=== PATIENT | female | born 1980 | race Caucasian/White ===

== ENCOUNTER → 2018-01-10 16:25 | Outpatient (CLI) | payer OTHER, SELFPAY ==
[2018-01-10 18:18] LABS: Rubella IgG > 500.0 IU/mL
[2018-01-13 10:43] LABS: Rubeola IgG Ab > 300.0 AU/mL (Immune >29.9); V-Zoster IgG (Immunity) 1480 index (Immune >165)
== END ==
PROVIDERS: Family Provider Family Medicine; PCP Family Medicine; Visit Provider Family Medicine
DX: Z01.84 Encounter for antibody response examination (principal)
CPT/HCPCS: 36415; 86735; 86762; 86765; 86787

== ENCOUNTER → 2019-01-11 06:34 | Outpatient (CLI) | payer OTHER, SELFPAY ==
[2018-06-23 09:08] VITALS: BMI 26.2
[2019-01-11 08:17] LABS: Iron 89 ug/dL (50-170); Thyroid Stim Hormone (TSH) 1.89 uIU/mL (0.358-3.74)
[2019-01-11 09:11] LABS: Vitamin B12 311 pg/mL (211-911); Vitamin D,25 Hydroxy 28.1 ng/mL (29.95-100.01)
== END ==
PROVIDERS: Family Provider Family Medicine; PCP Family Medicine; Referring Provider Family Medicine; Visit Provider Family Medicine
DX: Z00.00 Encounter for general adult medical examination without abnormal findings (principal)
CPT/HCPCS: 36415; 82306; 82533; 82607; 83540; 84443

== ENCOUNTER → 2019-02-10 07:29 | Outpatient (CLI) | payer OTHER, SELFPAY ==
[2018-06-23 09:08] VITALS: BMI 26.2
== END ==
PROVIDERS: Family Provider Family Medicine; PCP Family Medicine; Referring Provider Family Medicine; Visit Provider Family Medicine
DX: R53.83 Other fatigue (principal)
CPT/HCPCS: 36415; 82533

== ENCOUNTER → 2019-03-21 11:25 | Outpatient (CLI) | payer OTHER, SELFPAY ==
[2019-03-21 08:51] VITALS: BMI 26.2
[2019-03-24 11:57] LABS: HPV APTIMA, High Risk Negative (Negative)
== END ==
PROVIDERS: Family Provider Family Medicine; PCP Family Medicine; Referring Provider Nurse Practitioner Women's Health; Visit Provider Nurse Practitioner Women's Health
DX: Z12.4 Encounter for screening for malignant neoplasm of cervix (principal)
CPT/HCPCS: 87624; 88175; G0145

== ENCOUNTER → 2019-03-27 07:36 | Outpatient (CLI) | payer OTHER, SELFPAY ==
[2019-03-21 08:51] VITALS: BMI 26.2
--- NOTE | 2019-03-27 07:39 | US_ITS ---
STUDY: ULTRASOUND OF THE FEMALE PELVIS - COMPLETE REASON FOR EXAM: Female, 38 years old. Heavy menses. LMP: March 03, 2019. TECHNIQUE: Transabdominal and Transvaginal TECHNICAL QUALITY: Adequate. COMPARISON: None. FINDINGS: The uterus is retroflexed and is in a midline position. The uterus is enlarged and measures 10.9 cm x 7.4 cm x 5.8 cm. There is a Nabothian cyst of the cervix. The endometrium is thickened and measures 12.5 mm in thickness, and is hyperechoic. There is no demonstrated endometrial mass. There is no demonstrated myometrial mass. I.U.D. - The patient does not have an I.U.D. The right ovary is visualized. The right ovary measures 3.4 cm x 2 cm x 1.9 cm. There is a 1.7 cm x 1.7 cm x 0.9 cm hypoechoic nodule in the right ovary. There is no visualized right adnexal mass or complex lesion. There is normal arterial and normal venous vascularity. The left ovary is visualized. The left ovary measures 2.4 cm x 1.8 cm x 1.7 cm. There is no left ovarian cyst or ovarian mass. There is no visualized left adnexal mass or complex lesion. There is normal arterial and normal venous vascularity. There is no fluid in the cul-de-sac. The pre void volume of the bladder was 35 ml. Polycystic ovary disease: No. US/Pelvic (Non ) IMPRESSION: Slightly enlarged uterus with thickened endometrium. 1.7 cm x 1.7 cm x 0.9 cm hypoechoic nodule in the right ovary. Follow-up is recommended. Electronically Signed: Gagan Tong, at 13:06 EDT , Service support ,
--- NOTE | 2019-03-27 07:39 | US_ITS ---
STUDY: ULTRASOUND OF THE FEMALE PELVIS - COMPLETE REASON FOR EXAM: Female, 38 years old. Heavy menses. LMP: March 03, 2019. TECHNIQUE: Transabdominal and Transvaginal TECHNICAL QUALITY: Adequate. COMPARISON: None. FINDINGS: The uterus is retroflexed and is in a midline position. The uterus is enlarged and measures 10.9 cm x 7.4 cm x 5.8 cm. There is a Nabothian cyst of the cervix. The endometrium is thickened and measures 12.5 mm in thickness, and is hyperechoic. There is no demonstrated endometrial mass. There is no demonstrated myometrial mass. I.U.D. - The patient does not have an I.U.D. The right ovary is visualized. The right ovary measures 3.4 cm x 2 cm x 1.9 cm. There is a 1.7 cm x 1.7 cm x 0.9 cm hypoechoic nodule in the right ovary. There is no visualized right adnexal mass or complex lesion. There is normal arterial and normal venous vascularity. The left ovary is visualized. The left ovary measures 2.4 cm x 1.8 cm x 1.7 cm. There is no left ovarian cyst or ovarian mass. There is no visualized left adnexal mass or complex lesion. There is normal arterial and normal venous vascularity. There is no fluid in the cul-de-sac. The pre void volume of the bladder was 35 ml. Polycystic ovary disease: No. US/Transvaginal Non- IMPRESSION: Slightly enlarged uterus with thickened endometrium. 1.7 cm x 1.7 cm x 0.9 cm hypoechoic nodule in the right ovary. Follow-up is recommended. Electronically Signed: Gagan Tong, at 13:06 EDT , Service support ,
== END ==
PROVIDERS: Family Provider Family Medicine; PCP Family Medicine; Referring Provider Nurse Practitioner Women's Health; Visit Provider Nurse Practitioner Women's Health
DX: N92.0 Excessive and frequent menstruation with regular cycle (principal)
CPT/HCPCS: 76830; 76856

== ENCOUNTER → 2019-05-17 12:05 | Outpatient (CLI) | payer OTHER, SELFPAY ==
[2019-04-12 11:35] VITALS: BMI 29.0
[2019-05-17 14:28] LABS: Vitamin B12 613 pg/mL (211-911); Vitamin D,25 Hydroxy 46.6 ng/mL (29.95-100.01)
== END ==
PROVIDERS: Family Provider Family Medicine; PCP Family Medicine; Visit Provider Family Medicine
DX: E55.9 Vitamin D deficiency, unspecified (principal); E53.8 Deficiency of other specified B group vitamins
CPT/HCPCS: 36415; 82306; 82607

== ENCOUNTER 2019-05-27 16:04 | Observation (INO) | payer OTHER, SELFPAY ==
[2019-05-24 08:36] VITALS: BMI 29.0
[2019-05-27] VITALS (10 sets, daily range): BP systolic 124–150; BP diastolic 75–115; PULSE 109–147; RESP 16–28; TEMP 36.5–36.7; O2SAT 96–100; BMI 23.2; BMI 30.2
[2019-05-27] MEDS: Albuterol 2.5 MG/3 ML VIAL.NEB. INHALATION ×3 (16:18→17:12)
--- NOTE | 2019-05-27 16:20 | RAD_ITS ---
STUDY: X-RAY CHEST REASON FOR EXAM: Female, 38 years old. Shortness of breath, asthma TECHNIQUE: AP COMPARISON: None. FINDINGS: EKG leads project over the chest. The lungs are clear and expanded. There is no demonstrated pleural abnormality. Normal size heart. Normal mediastinum and criss. Normal visualized pulmonary arteries. Normal visualized aortic arch and descending thoracic aorta. Normal visualized thoracic spine. Normal visualized ribs, clavicles, and shoulders. There is no demonstrated abnormality of the visualized soft tissue structures of the upper abdomen. RAD/Chest 1 View (Portable) IMPRESSION: Nonacute portable x-ray examination of the chest. Electronically Signed: Rober Reyes MD (Brooks) at 16:49 EST , Service support ,
--- NOTE | 2019-05-27 16:20 | CPS ---
ACID POLYMERIZATION OPERATOR called to pts. room. Pt. was tachypneic and wheezes noted throughout. gave a verbal order for Aerosol tx to be given. Pt. has possible allergy to Atrovent medication, so albuterol tx was given. Tx given @ 16:18 physician aware.
[2019-05-27] MEDS: 0.9% Normal Saline 1,000 ML 1000 ML IV (16:26)
[2019-05-27] MEDS: MethylPREDNISolone 125 MG/2 ML Vial IV (16:26)
--- NOTE | 2019-05-27 16:28 | ED.DCSUM_ITS ---
- ER Visit Summary Date of Service: 05/27/19 Chief Complaint: Shortness of breath History of Present Illness: The patient is a 38 F presenting with shortness of breath. Patient states this started this morning. She ran a trail run approximately 2.5 miles. She then began having shortness of breath. She has a history of asthma. She tried her albuterol at home with no relief. She is not a smoker. Denies other complaints. Physical Examination: Vitals are stable. Heart rate 147, respiratory rate 26. Patient is afebrile. Alert no acute distress. HEENT exam is unremarkable. Neck is supple. Lungs are wheezing bilaterally. Tachypnea Heart is regular tachycardic Abdomen is soft nontender nondistended. Extremities are unremarkable. Skin is warm and dry. Remainder of exam is unremarkable. Emergency Department Course and Treatment: Patient was given albuterol aerosols. She was given Solu-Medrol IV. Chest x-ray shows no acute process. CBC unremarkable. Patient continues to have wheezing. She worsened after walking to the bathroom in the ED. She was given magnesium IV. Discussed with the hospitalist for admission. Disposition: Observation Impression: Asthma exacerbation This note was generated with [employer] dictation software. It may contain incorrect words, spelling, and punctuation that were not noted in review of the chart prior to signing ED Disposition - Plan for ED Patient:
--- NOTE | 2019-05-27 17:18 | EKG12_ITS ---
Test Reason : SOB Blood Pressure : / mmHG Vent. Rate : 133 BPM Atrial Rate : 133 BPM P-R Int : 114 ms QRS Dur : 086 ms QT Int : 312 ms P-R-T Axes : 042 050 030 degrees QTc Int : 464 ms Sinus tachycardia Nonspecific ST abnormality Abnormal ECG Confirmed by LON HAY, MAYA ([id number]), news videotape editor FRANCISCO ZAPIEN ([id number]) on 05/30/2019 1:54:23 PM Referred By: MARY Confirmed By:MAYA FORREST MD
[2019-05-27 17:23] LABS: Absolute Lymphocyte Count 2.43 X10^3/uL (0.83-4.51); Absolute Neutrophil Count 7.2 X10^3/uL (2.0-7.7); Basophil# 0.05 X10^3/uL; Basophil% 0.5 % (0-1); Eosinophil# 0.26 X10^3/uL; Eosinophils% 2.4 % (0-5); Hematocrit 36.1 % (37-47); Lymphocyte # 2.43 X10^3/ul (4.0); Lymphocyte % 22.8 % (19-41); Mean Corp Hgb Conc 33.2 g/dL (32-36); Mean Corpuscular Hgb 29.1 pg (27.0-32.0); Mean Corpuscular Volume 87.4 fL (81-99); Mean Platelet Vol. 8.9 fl (6.2-12.0); Monocyte# 0.66 X10^3/uL; Monocyte% 6.2 % (0-10); NRBC Flagged by Analyzer 0 % (0-5); Neutrophil # 7.23 X10^3/uL (2.7-7.7); Neutrophil % 67.8 % (47-70); Platelet Count 326 K/mm3 (150-450); RBC Distribution Width CV 13.1 % (11.6-14.6); RBC Distribution Width SD 41.8 fl (35.1-43.9); Red Blood Count 4.13 M/mm3 (4.2-5.4); White Blood Count 10.7 K/mm3 (4.4-11.0)
--- NOTE | 2019-05-27 17:26 | PCM.HP.STD ---
Problem List (1) Acute asthma exacerbation Status: Acute Qualifiers: Asthma severity: unspecified severity (2) Hypokalemia Status: Acute (3) Acute respiratory distress Status: Acute (4) Depression Status: Chronic Qualifiers: Depression Type: unspecified Qualified Code(s): F32.9 - Major depressive disorder, single episode, unspecified (5) Asthma Status: Chronic Qualifiers: Asthma severity: unspecified severity Asthma persistence: unspecified Asthma complication type: unspecified Qualified Code(s): J45.909 - Unspecified asthma, uncomplicated History of Present Illness Date of Admission: 05/27/19 Chief Complaint: Dyspnea, Wheezing The patient is a 38 y/o F w/ PMHx: Asthma, Depression who presents to the [facility] ED on 05/27/19 with history of feeling well with no recent URI symptoms, ran a off course [employer] race which included notable elevation at approximately 9 in the morning on day of presentation with temperature at that time 20 degrees with following severe wheezing, dyspnea which she notes did not improve despite oral magnesium and aerosol administration at home with notable tachycardia, tachypnea, ongoing wheezing and onset of nonproductive cough, worse with any increased respiratory attempt. In the emergency room with interventions patient did transiently improve but following ambulation to the restroom worsened again. Work-up in the ED included T 97.7, heart rate initially 147, BP 150/115, respiratory rate 26, 100% on room air, CBC with WC 10.7, hemoglobin 12, platelets 326 without shift, pending BMP and serum testing upon requested evaluation of patient ED physician, chest x-ray with no acute cardiopulmonary findings. In the ED patient ministered normal saline, Solu-Medrol 125 Milgram IV x1, DuoNeb and albuterol therapies as well as magnesium 2 g IV x1. Past Medical History Past Medical History (Chronic Problems): Chronic Problems (Last Reviewed 05/24/19 @ 08:36 by Isabel Moralez) Depression (Chronic) Asthma (Chronic) Medical History: Medical History (Last Reviewed 05/24/19 @ 08:36 by Isabel Moralez) Asthma J45.909 Depression F32.9 Shortness of breath R06.02 Vitamin D deficiency E55.9 Allergies peanut Allergy (Mild, Verified 05/27/19 16:08) Anaphylaxis treenut Allergy (Mild, Uncoded 05/27/19 16:08) Anaphylaxis Home Medications: Ambulatory Orders Medication Instructions Recorded Albuterol IH (ProAir) [Proair Hfa] 2 puff INHALATION Q2H PRN 09/15/13 epinephrine 0.3 mg/0.3 mL 0.3 mg IM ONCE 06/23/18 injection, auto-injector bupropion HCl XL 150 mg 24 hr 150 mg PO QAM 03/21/19 tablet, extended release cholecalciferol (vitamin D3) 2,000 2,000 unit PO DAILY 03/21/19 unit capsule fluticasone 100 mcg-salmeterol 50 1 puff INHALATION BID 03/21/19 mcg/dose blistr powdr for inhalation mecobalamin (vitamin B12) 1,000 1,000 mcg SUBLINGUAL DAILY 03/21/19 mcg disintegrating tablet,sublingual levonorgestrel 19.5 mcg/24 hrs (5 1 device INTRAUTERINE ONCE 05/24/19 yrs) 52 mg intrauterine device Surgical History: Surgical History (Last Reviewed 05/24/19 @ 08:36 by Isabel Moralez) History of tonsillectomy Z90.89 History of tubal ligation Z98.51 Surgical History: - - Tonsillectomy, bilateral tubal ligation. Psychiatric History: Depression ACADEMIC SERVICES COORDINATOR History: No pertinent ACADEMIC SERVICES COORDINATOR history Lives: Spouse/ Significant Other Smoking Status: Never smoker Tobacco Use: Non-smoker Alcohol: Occasional Drugs: None - *Family History Maternal Family History: Family History (Last Reviewed 05/24/19 @ 08:36 by Isabel Moralez) Father Colon cancer Diabetes Hypertension History of liver cancer History Items: - - Mother with a history of heart disease including SVT, MVP as well as asthma. Paternal Family History: Family History (Last Reviewed 05/24/19 @ 08:36 by Isabel Moralez) Father Colon cancer Diabetes Hypertension History of liver cancer History Items: - - Father with a significant past medical history inclusive of colon and liver cancer, diabetes and hypertension. Review of Systems Constitutional: Reports: Malaise, Weakness, Fatigue. Denies: Anorexia, Chills, Fever, Weight Change HEENT: Reports: Nasal Congestion, Post Nasal Drip. Denies: Head Aches, Sinus Congestion, Sinus Drainage Cardiovascular: Denies: Chest Pain, Palpitations Respiratory: Reports: Cough, Shortness of Breath, Shortness of breath at rest, Shortness of breath upon exertion, Wheezing. Denies: Sputum production Gastrointestinal: Denies: Abdominal Pain, Nausea, Vomiting Genitourinary: Denies: Dysuria Musculoskeletal: Reports: Back Pain, Joint Pain. Denies: Joint Tenderness Skin: Denies: Rash, Wounds Neurological: Denies: Numbness, Tingling, Focal weakness Psychiatric: Denies: Anxiety, Depression, Homicidal Ideations, Suicidal Ideations Hematologic/ Lymphatic: Denies: Easy Bruising, Easy Bleeding VTE Information - Inpt Only VTE Present on Admission: No VTE Mechan Device Prophylaxis: None VTE Pharm Prophylaxis ordered?: No Reason prophylaxis not ordered:: Treatment Not Indicated Patient Problems: Active and Suspected Problems (Last Reviewed 05/24/19 @ 08:36 by Isabel Moralez) Acute asthma exacerbation (Acute) Hypokalemia (Acute) Acute respiratory distress (Acute) Subjective: Patient seated upright in the ED bed, fatigued appearance, tachycardic, still some tachypnea and accessory muscle usage, coughing elicited with any increased respiratory attempts. Objective: Physical Examination: General: awake, alert, oriented x 3 and cooperative, seated upright in ED bed, hunched over, still having some increased respiratory rate, tachycardia, some accessory muscle usage, coughing bouts elicited with examination. Skin: normal color, turgor, no icterus, cyanosis. HEENT: AT/NC, EOMI, PERRLA, dry MM, rhinorrhea evident, no carotid bruits or JVD noted. Lungs: Diminished breath sounds throughout, greater bases, right greater than left, diffuse end expiratory wheezing throughout, no rales or ronchi. Heart: Tachycardic with regular rhythm; no gallop, rub audible. Abdomen: soft, NTTP, ND, normal BS, no HSM. Extremities: no cyanosis, clubbing, or edema. Neurological: patient awake, alert, oriented x 3; cognitive function intact; pupils equally reactive to light and accomodation; cranial nerves II-XII grossly normal, moving all 4 extremities, no focal deficits, strength severely global decrease secondary to acute presentation. Psychiatric: affect appears fatigued, no acute evidence of depressive or anxiety feelings. - Physical Exam Vitals/I&O's: Vital Signs Temp Pulse Resp BP Pulse Ox 97.7 F L 139 H 26 H 150/115 H 100 05/27/19 16:06 05/27/19 16:18 05/27/19 16:18 05/27/19 16:06 05/27/19 16:18 Oxygen Delivery Method Room Air Weight: 0 oz Body Mass Index (BMI) 0.0 Laboratory Results 05/27/19 17:10: WBC 10.7, RBC 4.13 L, Hgb 12.0, Hct 36.1 L, MCV 87.4, MCH 29.1, MCHC 33.2, RDW Std Deviation 41.8, RDW Coeff of Colten 13.1, Plt Count 326, MPV 8.9, Immature Gran % (Auto) 0.300, Neut % (Auto) 67.8, Lymph % (Auto) 22.8, Dickson % (Auto) 6.2, Eos % (Auto) 2.4, Baso % (Auto) 0.5, Absolute Neuts (auto) 7.2, Absolute Lymphs (auto) 2.43, Nucleated RBC % 0 05/27/19 17:10: Sodium Pending, Potassium Pending, Chloride Pending, Carbon Dioxide Pending, Anion Gap Pending, BUN Pending, Creatinine Pending, Est GFR (MDRD) Af Amer Pending, Est GFR (MDRD) Non-Af Pending, BUN/Creatinine Ratio Pending, Glucose Pending, Calcium Pending 05/27/19 17:10: Serum , Qual Pending Current Medications Magnesium Sulfate 2 gm/ Sodium (Chloride) 104 mls @ 52 mls/hr IV X1 ONE Stop: 05/27/19 19:13 Assessment/Plan All Active Problems (Last Reviewed 05/24/19 @ 08:36 by Isabel Moralez) Acute asthma exacerbation (Acute) Hypokalemia (Acute) Acute respiratory distress (Acute) The patient is a 38 y/o F w/ PMHx: Asthma, Depression who presents to the [facility] ED on 05/27/19 with history of feeling well with no recent URI symptoms, ran a off course [employer] race and following had severe wheezing, dyspnea. (1) Acute on Chronic Asthma Exacerbation w/ Acute Respiratory Distress evident likely Exercise-Weather Exposure Induced: CXR w/ chronic changes, CBC on admission w/ no WBC elevation or market shift, afebrile upon presentation however tachycardic into the 140s, tachypnea, increased work of breathing with accessory muscle usage. Will admit to MS, maintain on telemetry, given severity of presentation with serum bicarb on low normal end, will obtain ABG, maintain on oxygen with wean as tolerated to room air, continue ATC duonebs, PRN albuterol, IV methylprednisolone, HOB, IS parameters, request sputum Cx, respiratory viral panel, EKG with sinus tachycardia. (2) Hypokalemia: Admission K+ 3.1, supplementation given, repeat level in AM. (3) Depression: We will continue home bupropion regimen. (4) DVT prophylaxis: Low risk. Code Visit OBSV E&M: 74103 Initial observation care L3
[2019-05-27 17:37] LABS: Anion Gap 10 (5-15); BUN 12 mg/dL (7-18); BUN/Creat Ratio 13.1 RATIO (10-20); Calcium,Total 7.9 mg/dL (8.5-10.1); Chloride 112 mmol/L (98-107); Creatinine, Serum 0.92 mg/dL (0.55-1.02); EST Glomerular Filtration Rate 73 mL/min (>60); Est Glom Filt Rate - Afr Amer 88 mL/min (>60); Glucose 133 mg/dL (74-106); Potassium 3.1 mmol/L (3.5-5.1); Sodium Level 143 mmol/L (136-145)
[2019-05-27 18:06] LABS: Internal QC Validated? YES +Cl - CLEAR BKGD; Pregnancy, Serum, hCG Quali. NEGATIVE Negative
[2019-05-27] MEDS: 0.9% Normal Saline 1,000 ML 125 ML IV (18:30)
[2019-05-27] MEDS: Acetaminophen 325 MG Tablet 650 MG PO (18:32)
[2019-05-27] MEDS: Ipratropium/Albuterol Sulfate 3 ML AMPUL.NEB INHALATION ×2 (20:35→23:40)
--- NOTE | 2019-05-27 21:00 | CPS ---
ABG results called to Dr. Wright. No new orders received at this time.
[2019-05-27 21:01] LABS: Allen Test POS; Base Excess -6 mmol/L (-2 to +2); Bicarbonate 18.5 mmol/L (22-26); Blood Gas Specimen Type ART; O2 Delivery Device Room Air; PO2 90 mmHG (75-100); SITE R Radial; SO2 97 % (95-99); Time Given 2100; Total Carbon Dioxide 19 mmol/L; pCO2 27.2 mmHg (35-45); pH 7.44 (7.35-7.45)
[2019-05-27] MEDS: Ibuprofen 600 MG Tablet PO (21:26)
[2019-05-27] MEDS: MELATONIN 3 MG TABLET PO (23:06)
[2019-05-28] VITALS (16 sets, daily range): BP systolic 109–121; BP diastolic 51–75; PULSE 84–119; RESP 16–18; TEMP 36.4–36.8; O2SAT 97–100
[2019-05-28] MEDS: 0.9% Normal Saline 1,000 ML 125 ML IV (03:25)
[2019-05-28] MEDS: 0.9% Saline Lock 10 ML Syringe IV ×3 (05:10→21:46)
[2019-05-28] MEDS: Ipratropium/Albuterol Sulfate 3 ML AMPUL.NEB INHALATION ×2 (06:50→15:58)
[2019-05-28] MEDS: Ibuprofen 600 MG Tablet PO ×2 (07:12→15:42)
--- NOTE | 2019-05-28 08:55 | NURSING ---
PT RESTING IN BED AND ROLLED OVER TO RIGHT SIDE. HEART RATE 160, PT STATED SHE FELT PALPITATIONS. HEART RATE BACK TO 110.
--- NOTE | 2019-05-28 10:00 | PCM.PROGNOTE ---
Patient Problems: Active and Suspected Problems (Last Reviewed 05/24/19 @ 08:36 by Isabel Moralez) Acute asthma exacerbation (Acute) Hypokalemia (Acute) Acute respiratory distress (Acute) Subjective: 38-year-old female with a past medical history of asthma and depression who presented to the emergency department at [facility] complaining of shortness of breath and wheezing. This started suddenly during a 5K race in the cold. She received Solu-Medrol in the emergency room as well as several aerosols and had continued shortness of breath, tachypnea and conversational dyspnea. Admitted with acute exacerbation of asthma and started on high-dose intravenous steroids, [id number] aerosols. All events of the past 24 H have been reviewed. All events of the past 24 hours been reviewed Intermittently tachycardic. Blood pressures are well controlled. She is 97 to 99% saturated on room air and is not tachypneic. She has no conversational dyspnea and no accessory muscle use. Did not sleep well last night. Breathing is better today. Not coughing today. she had a brief run of a supraventricular tachycardia today that was at 150.....possible Aflutter with 2:1 conduction. She felt her heart flutter but, it was brief. Appears fatigued. Yesterday was the first day she ran in the cold weather and she had her face covered. Denies chest pain. No ST, runny nose or nasal congestion - Physical Exam Vitals/I&O's: Vital Signs Temp Pulse Resp BP Pulse Ox 97.5 F L 104 H 16 110/68 100 05/28/19 07:24 05/28/19 08:06 05/28/19 07:24 05/28/19 07:24 05/28/19 07:24 Oxygen Delivery Method Room Air Weight: 160 lb Body Mass Index (BMI) 30.2 Intake and Output for Last 24 Hours 05/26/19 05/27/19 05/28/19 23:59 23:59 23:59 Intake Total 1103 2441.25 / 2441.25 Balance 1103.25 / 2441.25 General: Alert, Oriented x3, Cooperative, No apparent distress, - - looks tired Oral: Moist Mucosa Neck: Supple, No Nodes, Trachea Midline Lungs: Clear to auscultation, No rhonchi, No wheeze, No rales, - - good air exchange Cardiovascular: Regular Rhythm, Normal S1, Normal S2, No rub noted, No Gallop, Tachycardic Abdomen: Bowel Sounds Present, Soft, Non Tender, Non-Distended Extremities: No clubbing, No cyanosis, No edema Skin: No rashes, No breakdown Neurological: Cranial nerves II-XII grossly intact, Neuro grossly intact Psych/Mental Status: Normal Affect, Appropriate Laboratory Results 05/27/19 17:10: WBC 10.7, RBC 4.13 L, Hgb 12.0, Hct 36.1 L, MCV 87.4, MCH 29.1, MCHC 33.2, RDW Std Deviation 41.8, RDW Coeff of Colten 13.1, Plt Count 326, MPV 8.9, Immature Gran % (Auto) 0.300, Neut % (Auto) 67.8, Lymph % (Auto) 22.8, Woodson % (Auto) 6.2, Eos % (Auto) 2.4, Baso % (Auto) 0.5, Absolute Neuts (auto) 7.2, Absolute Lymphs (auto) 2.43, Nucleated RBC % 0 05/27/19 17:10: Sodium 143, Potassium 3.1 L, Chloride 112 H, Carbon Dioxide 21.0, Anion Gap 10, BUN 12, Creatinine 0.92, Estim Creat Clear Calc 0.00, Est GFR (MDRD) Af Amer 88, Est GFR (MDRD) Non-Af 73, BUN/Creatinine Ratio 13.1, Glucose 133 H, Calcium 7.9 L 05/27/19 17:10: Serum , Qual NEGATIVE 05/27/19 20:56: Specimen Type ART, Sample Site R Radial, pH 7.44, Bicarbonate Actual 18.5 L, POC Total CO2 19, Base Excess -6 L, O2 Saturation 97, ABG pCO2 27.2 L, ABG pO2 90, Arsenio Test POS, O2 Delivery Device Room Air, Blood Gas Notified Whom HOSP , Blood Gas Notified Time 2100 Current Medications Acetaminophen (Tylenol) 650 mg PO Q6H PRN PRN PRN Reason: Non-cardiac pain (mod-severe) Last Admin: 05/27/19 18:32 Dose: 650 mg Documented by: Al Hydroxide/Mg Hydroxide (Mylanta Ii) 15 - 30 ml PO Q4H PRN PRN PRN Reason: INDIGESTION Albuterol Sulfate (Ventolin Aerosols) 2.5 mg INHALATION Q2H PRN PRN PRN Reason: dyspnea, wheezing Albuterol/Ipratropium (Duoneb) 3 ml INHALATION Q4HWA.RT [facility] Last Admin: 05/28/19 06:50 Dose: 3 ml Documented by: Bupropion HCl (Wellbutrin Xl) 150 mg PO DAILY [facility] Dextrose (D50w Syringe) 0 gm IV X1 PRN; Protocol PRN Reason: Hypoglycemia Glucagon () 1 mg IM .X1 PRN PRN Reason: Hypoglycemia Guaifenesin (Robitussin) 20 ml PO Q4H PRN PRN PRN Reason: COUGH Hydralazine HCl (Apresoline Iv) 10 mg IV Q4H PRN PRN PRN Reason: SBP > 160 Sodium Chloride () 1,000 mls @ 125 mls/hr IV .Q8H [facility] Last Infusion: 05/28/19 07:27 Dose: 0 mls/hr Documented by: Ibuprofen (Motrin) 600 mg PO Q8H PRN PRN PRN Reason: mild to moderate pain Last Admin: 05/28/19 07:12 Dose: 600 mg Documented by: Magnesium Hydroxide (Milk Of Magnesia) 30 ml PO DAILY PRN PRN Reason: Constipation Melatonin (Melatonin) 3 mg PO QHS PRN PRN PRN Reason: INSOMNIA Last Admin: 05/27/19 23:06 Dose: 3 mg Documented by: Methylprednisolone (Solu-Medrol) 40 mg IV Q8 [facility] Last Admin: 05/28/19 05:10 Dose: 40 mg Documented by: Ondansetron HCl (Zofran) 4 mg IV Q8H PRN PRN PRN Reason: NAUSEA/VOMITING Sodium Chloride () 10 - 40 ml IV UD PRN PRN Reason: SALINE FLUSH Last Admin: 05/28/19 05:10 Dose: 10 ml Documented by: Throat Lozenges (Cepacol Sore Throat Lozenge) 1 lozenge MUCOUS MEM Q2H PRN PRN PRN Reason: Sore throat or cough Medical Necessity - Tobacco Use Smoking Status: Never smoker Tobacco Use: Non-smoker Assessment/Plan All Active Problems (Last Reviewed 05/24/19 @ 08:36 by Isabel M Moralez) Acute asthma exacerbation (Acute) Hypokalemia (Acute) Acute respiratory distress (Acute) Impressions 1. acute exacerbation asthma - treated with ATC aerosols, high dose ELENI steroids and mucinex 2. tachycardia - likely related to aerosols and steroids. Change the duonebs to Atrovent only and DC the solumedrol in the AM and start Prednisone. 3. Hypokalemia - suspect due to hyperventilation and resp alkalosis moving the potassium intracellularly Supplement ordered and will recheck in the AM Probable Dc in the AM Code Visit Inpatient E&M: 44356 Subs Hosp L2
[2019-05-28] MEDS: Pantoprazole Sodium 40 MG Tablet PO (12:28)
[2019-05-28] MEDS: Mag Hydrox/Al Hydrox/Simeth 30 ML UDC PO ×2 (12:28→21:45)
[2019-05-28] MEDS: Albuterol 2.5 MG/3 ML VIAL.NEB. INHALATION (13:07)
[2019-05-28] MEDS: Ipratropium 0.5 MG/2.5 ML SOLUTION INHALATION (20:05)
--- NOTE | 2019-05-28 21:27 | NURSING ---
Checked on this pt for Vera MAJOR who was tied up with another pt. Sendy is able to talk in complete sentences without distress and said she is doing fine. No needs voiced at this time.
[2019-05-28] MEDS: Zolpidem Tartrate 5 MG Tablet PO (21:46)
[2019-05-29 04:00] VITALS: PULSE 84
[2019-05-29 04:45] VITALS: BP 99/60; PULSE 76; RESP 18; TEMP 36.7; O2SAT 98
[2019-05-29 05:43] VITALS: PULSE 83; RESP 18; O2SAT 99
[2019-05-29] MEDS: Ipratropium 0.5 MG/2.5 ML SOLUTION INHALATION ×2 (05:43→09:21)
[2019-05-29] MEDS: Ibuprofen 600 MG Tablet PO (07:41)
[2019-05-29 07:49] VITALS: PULSE 84
[2019-05-29 08:00] VITALS: BP 123/75; PULSE 81; RESP 18; TEMP 36.7; O2SAT 100
[2019-05-29] MEDS: predniSONE 20 MG Tablet 40 MG PO (08:04)
--- NOTE | 2019-05-29 08:54 | PCM.DC ---
- Discharge Diagnoses Current Active Problems: Current Active and Chronic Problems (Last Reviewed 05/24/19 @ 08:36 by Isabel Moralez) Acute asthma exacerbation (Acute) Hypokalemia (Acute) Acute respiratory distress (Acute) You will use the following diet at home:: Regular Your food should be the consistency of: Regular Your liquids should be the consistency of: Regular/Thin Discharge Activity: Return to Normal Activity Call your doctor if you observe: Fever of 101 or Higher, Shortness of breath, Dizziness, Fainting spells, Swelling in the ankles, Chest pain, Increased palpitations (irregular heartbeat) Allergies/Adverse Reactions: Allergies peanut Allergy (Mild, Verified 05/27/19 16:08) Anaphylaxis treenut Allergy (Mild, Uncoded 05/27/19 16:08) Anaphylaxis Medications to take at Discharge Albuterol IH (ProAir) [Proair Hfa] 2 puff INHALATION Q2H PRN 09/15/13 epinephrine 0.3 mg/0.3 mL injection, auto-injector 0.3 mg IM ONCE 06/23/18 bupropion HCl XL 150 mg 24 hr tablet, extended release 150 mg PO QAM 03/21/19 cholecalciferol (vitamin D3) 2,000 unit capsule 2,000 unit PO DAILY 03/21/19 fluticasone 100 mcg-salmeterol 50 mcg/dose blistr powdr for inhalation 1 puff INHALATION BID 03/21/19 mecobalamin (vitamin B12) 1,000 mcg disintegrating tablet,sublingual 1,000 mcg SUBLINGUAL DAILY 03/21/19 levonorgestrel 19.5 mcg/24 hrs (5 yrs) 52 mg intrauterine device 1 device INTRAUTERINE ONCE 05/24/19 predniSONE tablet 40 mg PO DAILY@0800 #14 tab 05/29/19 The following prescriptions were given: predniSONE tablet 40 mg PO DAILY@0800 #14 tab Transmission Status: Pending to [facility] Primary Care Physician: Roe Nava MD [Primary Care Provider] - Please follow up with your Primary Care Physician in: 3-5 days Test Results: Test results from this visit will be discussed in further detail at your follow-up appointment, if applicable.
[2019-05-29 09:21] VITALS: PULSE 88; RESP 20
--- NOTE | 2019-05-29 09:54 | PCM.DC.SUM ---
Discharge Date and Diagnosis Date of Admission: 05/27/19 Date of Discharge: 05/29/19 - Secondary Discharge Diagnosis Chronic Problems (Last Reviewed 05/24/19 @ 08:36 by Isabel Moralez) Depression (Chronic) Asthma (Chronic) Hospital Course and Treatment Imaging Results: CXR: IMPRESSION: Nonacute portable x-ray examination of the chest. Consults: None Operations: None Procedures: None Summary of Care Provided: Per HPI: The patient is a 38 y/o F w/ PMHx: Asthma, Depression who presents to the [facility] ED on 05/27/19 with history of feeling well with no recent URI symptoms, ran a off course 5K race which included notable elevation at approximately 9 in the morning on day of presentation with temperature at that time 20 degrees with following severe wheezing, dyspnea which she notes did not improve despite oral magnesium and aerosol administration at home with notable tachycardia, tachypnea, ongoing wheezing and onset of nonproductive cough, worse with any increased respiratory attempt. In the emergency room with interventions patient did transiently improve but following ambulation to the restroom worsened again. Work-up in the ED included T 97.7, heart rate initially 147, BP 150/115, respiratory rate 26, 100% on room air, CBC with WC 10.7, hemoglobin 12, platelets 326 without shift, pending BMP and serum testing upon requested evaluation of patient ED physician, chest x-ray with no acute cardiopulmonary findings. In the ED patient ministered normal saline, Solu-Medrol 125 Milgram IV x1, DuoNeb and albuterol therapies as well as magnesium 2 g IV x1. Hospital Course: 1. Acute asthma exacerbation with acute respiratory distress/SVT-on the day of admission she had ran a 5K outside and presented with significant shortness of breath. She received a significant amount of albuterol as well as a dose of magnesium to help with her respiratory status. She was also started on IV steroids. She has recovered very well, and is currently not requiring any oxygen. She did have an issue with tachycardia and she does endorse having intermittent episodes of a sensation of chest fluttering. She did have what was thought to be SVT versus a flutter, however this was attributed to the amount of albuterol she received for her respiratory distress, and she has not had another issue with it on the day of discharge. She will follow-up with her primary care doctor as an outpatient for her asthma exacerbation as well as this sensation of fluttering and the evidence of SVT versus transient a flutter. She may need an echo as an outpatient. She would like to go home today and the risk of discharge were discussed with her and she expressed understanding. She will complete a 7-day course of steroids as an outpatient and she was instructed on the dosing of her albuterol inhaler for the next several days. 2. Her other medical diagnoses were evaluated and her home medications were continued where appropriate - Physical Exam Vitals/I&O's: Vital Signs Temp Pulse Resp BP Pulse Ox 98.1 F 88 20 H 123/75 H 100 05/29/19 08:00 05/29/19 09:21 05/29/19 09:21 05/29/19 08:00 05/29/19 08:00 Oxygen Delivery Method Room Air Weight: 160 lb Body Mass Index (BMI) 30.2 Intake and Output for Last 24 Hours 05/27/19 05/28/19 05/29/19 23:59 23:59 23:59 Intake Total 4 / 1963 3941.25 / 4541.25 1200 / 1200 Balance 1104 / 1963 3941.25 / 4541.25 1200 / 1200 General: Alert, Oriented x3, Cooperative, No apparent distress HEENT: Atraumatic, PERRLA, EOMI, Normocephalic Oral: Moist Mucosa Neck: Supple, No JVD Lungs: Clear to auscultation, Normal air movement, No rhonchi, No wheeze, No rales Cardiovascular: Regular rate, Regular Rhythm, Normal S1, Normal S2, No murmurs Abdomen: Soft, Non Tender, Non-Distended, No Hepato-splenomegaly Extremities: No edema, Capillary Refill Less than 3 Seconds Skin: No rashes, No breakdown Neurological: Neuro grossly intact, Sensory exam intact to light touch and pain Psych/Mental Status: Normal Affect, Appropriate Laboratory Results 05/29/19 05:03: Potassium 4.0 Discharge Activity: Return to Normal Activity Call your doctor if you observe: Fever of 101 or Higher, Shortness of breath, Dizziness, Fainting spells, Swelling in the ankles, Chest pain, Increased palpitations (irregular heartbeat) Home Medications: Medications to take at Discharge Albuterol IH (ProAir) [Proair Hfa] 2 puff INHALATION Q2H PRN 09/15/13 epinephrine 0.3 mg/0.3 mL injection, auto-injector 0.3 mg IM ONCE 06/23/18 bupropion HCl XL 150 mg 24 hr tablet, extended release 150 mg PO QAM 03/21/19 cholecalciferol (vitamin D3) 2,000 unit capsule 2,000 unit PO DAILY 03/21/19 fluticasone 100 mcg-salmeterol 50 mcg/dose blistr powdr for inhalation 1 puff INHALATION BID 03/21/19 mecobalamin (vitamin B12) 1,000 mcg disintegrating tablet,sublingual 1,000 mcg SUBLINGUAL DAILY 03/21/19 levonorgestrel 19.5 mcg/24 hrs (5 yrs) 52 mg intrauterine device 1 device INTRAUTERINE ONCE 05/24/19 predniSONE tablet 40 mg PO DAILY@0800 #14 tab 05/29/19 Following Prescrptions Were Given to Patient: predniSONE tablet 40 mg PO DAILY@0800 #14 tab Transmission Status: Received by [facility] Primary Care Physician: Roe Nava MD [Primary Care Provider] - Please follow up with your Primary Care Physician in: 3-5 days Disposition: Home Minutes spent on discharge:: 35 Patient Condition:: Stable Medical Necessity - Tobacco Use Smoking Status: Never smoker Tobacco Use: Non-smoker Meaningful Use Info Meaningful Use Diagnoses (Choose all that apply): None applicable Code Visit OBSV E&M: 75904 Observation care discharge
== END 2019-05-29 09:35 | disposition home or self-care (01) ==
LOC: ED 16:22 → MS3 17:44
PROVIDERS: Internal Medicine; Admitting Provider Family Medicine; Emergency Provider Emergency Medicine; Family Provider Family Medicine; PCP Family Medicine; Visit Provider Family Medicine
DX: J45.901 Unspecified asthma with (acute) exacerbation (principal); R06.03 Acute respiratory distress; I47.1 Supraventricular tachycardia; F32.9 Major depressive disorder, single episode, unspecified; E87.6 Hypokalemia; E55.9 Vitamin D deficiency, unspecified; Z79.899 Other long term (current) drug therapy; Z79.51 Long term (current) use of inhaled steroids; R94.31 Abnormal electrocardiogram [ECG] [EKG]
CPT/HCPCS: 36415; 36600; 71045; 80048; 82803; 84132; 84703; 85025; 93005; 94640; 96361; 96374; 96376; 99218; 99251; 99285; J7030; A4216; G0378; G0463

== ENCOUNTER → 2019-05-31 07:45 | Outpatient (CLI) | payer OTHER, SELFPAY ==
[2019-04-12 11:35] VITALS: BMI 29.0
[2019-05-27 18:05] VITALS: BMI 30.2
--- NOTE | 2019-05-31 07:47 | US_ITS ---
STUDY: ULTRASOUND OF THE FEMALE PELVIS - COMPLETE REASON FOR EXAM: Female, 38 years old. Follow-up ovarian cyst. LMP: 05/24/2019 TECHNIQUE: Transabdominal real-time exam with meza scale image documentation. Transvaginal exam was required for better visualization of the uterus and adnexal areas. TECHNICAL QUALITY: Adequate. COMPARISON: Prior exam of March 27, 2019. FINDINGS: The uterus is anteverted and is in a midline position. The uterus measures 7.9 x 6.2 x 4.9 cm. The endometrium measures 4 mm in thickness, and is hyperechoic. There is no demonstrated endometrial mass. There is no demonstrated myometrial mass. I.U.D. - The patient does have an I.U.D. the IUD is in the endometrial space. The right ovary is visualized. The right ovary measures 2.5 x 1.5 x 1.8 cm. There is no right ovarian cyst or ovarian mass. There is no visualized right adnexal mass or complex lesion. There is normal arterial and normal venous vascularity. The left ovary is visualized. The left ovary measures 4.7 x 3.6 x 2.8 cm. There is a 2.8 x 3.0 x 2.5 cm simple cyst of the left ovary. There is no visualized left adnexal mass or complex lesion. There is normal arterial and normal venous vascularity. There is minimal fluid in the cul-de-sac. The pre void volume of the bladder was 27 ml. Polycystic ovary disease: No. US/Transvaginal Non- IMPRESSION: Normal uterus with IUD in the endometrial space. Normal right ovary. The prior hypoechoic nodule has resolved. 2.8 x 3.0 x 2.5 cm a dominant follicle of the left ovary. Otherwise normal left ovary. Negative for other adnexal mass or free fluid. Electronically Signed: Erica Cruz MD at 17:09 EST , Service support ,
--- NOTE | 2019-05-31 07:47 | US_ITS ---
STUDY: ULTRASOUND OF THE FEMALE PELVIS - COMPLETE REASON FOR EXAM: Female, 38 years old. Follow-up ovarian cyst. LMP: 05/24/2019 TECHNIQUE: Transabdominal real-time exam with meza scale image documentation. Transvaginal exam was required for better visualization of the uterus and adnexal areas. TECHNICAL QUALITY: Adequate. COMPARISON: Prior exam of March 27, 2019. FINDINGS: The uterus is anteverted and is in a midline position. The uterus measures 7.9 x 6.2 x 4.9 cm. The endometrium measures 4 mm in thickness, and is hyperechoic. There is no demonstrated endometrial mass. There is no demonstrated myometrial mass. I.U.D. - The patient does have an I.U.D. the IUD is in the endometrial space. The right ovary is visualized. The right ovary measures 2.5 x 1.5 x 1.8 cm. There is no right ovarian cyst or ovarian mass. There is no visualized right adnexal mass or complex lesion. There is normal arterial and normal venous vascularity. The left ovary is visualized. The left ovary measures 4.7 x 3.6 x 2.8 cm. There is a 2.8 x 3.0 x 2.5 cm simple cyst of the left ovary. There is no visualized left adnexal mass or complex lesion. There is normal arterial and normal venous vascularity. There is minimal fluid in the cul-de-sac. The pre void volume of the bladder was 27 ml. Polycystic ovary disease: No. US/Pelvic (Non ) IMPRESSION: Normal uterus with IUD in the endometrial space. Normal right ovary. The prior hypoechoic nodule has resolved. 2.8 x 3.0 x 2.5 cm a dominant follicle of the left ovary. Otherwise normal left ovary. Negative for other adnexal mass or free fluid. Electronically Signed: Erica Cruz MD at 17:09 EST , Service support ,
== END ==
PROVIDERS: Family Provider Family Medicine; PCP Family Medicine; Referring Provider Nurse Practitioner Women's Health; Visit Provider Nurse Practitioner Women's Health
DX: N83.201 Unspecified ovarian cyst, right side (principal)
CPT/HCPCS: 76830; 76856; 93976

== ENCOUNTER 2020-04-08 10:27 | Outpatient (RCR) | payer OTHER, SELFPAY ==
[2019-05-27 18:05] VITALS: BMI 30.2
== END 2020-04-17 23:59 ==
LOC: NS 10:27
PROVIDERS: PCP Family Medicine; Visit Provider Family Medicine
DX: Z71.3 Dietary counseling and surveillance (principal); E66.9 Obesity, unspecified; Z68.31 Body mass index [BMI] 31.0-31.9, adult
CPT/HCPCS: 97802

== ENCOUNTER 2020-05-06 08:30 | Outpatient (RCR) | payer OTHER, SELFPAY ==
[2019-05-27 18:05] VITALS: BMI 30.2
== END 2020-05-06 23:59 | disposition home or self-care (01) ==
LOC: NS 08:30
PROVIDERS: PCP Family Medicine; Visit Provider Family Medicine
DX: Z71.3 Dietary counseling and surveillance (principal); E66.9 Obesity, unspecified; Z68.31 Body mass index [BMI] 31.0-31.9, adult; J45.909 Unspecified asthma, uncomplicated; I48.92 Unspecified atrial flutter
CPT/HCPCS: 97803

== ENCOUNTER → 2021-03-06 15:42 | Outpatient (CLI) | payer BC, SELFPAY ==
[2021-03-06 16:41] LABS: Absolute Lymphocyte Count 2.14 X10^3/uL (0.83-4.51); Absolute Neutrophil Count 4.2 X10^3/uL (2.0-7.7); Basophil# 0.05 X10^3/uL; Basophil% 0.7 % (0-1); Eosinophils% 7.9 % (0-5); Hematocrit 38.8 % (37-47); Hemoglobin 12.7 g/dL (12.0-15.0); Lymphocyte # 2.14 X10^3/ul (0.83-4.51); Lymphocyte % 28.3 % (19-41); Mean Corp Hgb Conc 32.7 g/dL (32-36); Mean Corpuscular Hgb 30.6 pg (27.0-32.0); Mean Corpuscular Volume 93.5 fL (81-99); Monocyte# 0.52 X10^3/uL; Monocyte% 6.9 % (0-10); NRBC Flagged by Analyzer 0 % (0-5); Neutrophil # 4.23 X10^3/uL (2.7-7.7); Neutrophil % 55.8 % (47-70); Platelet Count 334 K/mm3 (150-450); RBC Distribution Width CV 12.4 % (11.6-14.6); Red Blood Count 4.15 M/mm3 (4.2-5.4); White Blood Count 7.6 K/mm3 (4.4-11.0)
[2021-03-06 17:15] LABS: Thyroid Stim Hormone (TSH) 1.07 uIU/mL (0.358-3.74)
== END ==
PROVIDERS: PCP Family Medicine; Visit Provider Obstetrics & Gynecology
DX: N93.9 Abnormal uterine and vaginal bleeding, unspecified (principal)
CPT/HCPCS: 36415; 84443; 85025

== ENCOUNTER → 2021-03-14 16:30 | Outpatient (CLI) | payer BC, SELFPAY ==
--- NOTE | 2021-03-14 16:33 | US_ITS ---
INDICATION: AUB EXAMINATION: US Pelvis Non-OB Complete TECHNIQUE: Transabdominal and transvaginal pelvic ultrasound was performed. Grayscale, spectral waveform, and color flow Doppler evaluation of the adnexa. COMPARISON: None. FINDINGS: UTERUS: Anteverted. The uterus measures 8.9 x 6.2 x 5.3 cm. There is no uterine mass. The endometrial stripe measures 19 mm in AP diameter which is within normal limits. RIGHT OVARY: Measures 2.6 x 2.3 x 1.7 cm. Non-enlarged, normal echogenicity. There is normal arterial inflow and venous outflow present in the right ovary. LEFT OVARY: Measures 3.1 x 2.4 x 1.5 cm. Non-enlarged, normal echogenicity. There is normal arterial inflow and venous outflow present in the left ovary. FREE FLUID: None. US/Pelvic (Non ) IMPRESSION: Normal pelvic ultrasound. Electronically Signed: Craig Weaver MD at 17:29 EDT Tel , Service support ,
--- NOTE | 2021-03-14 16:33 | US_ITS ---
INDICATION: AUB EXAMINATION: US Pelvis Non-OB Complete TECHNIQUE: Transabdominal and transvaginal pelvic ultrasound was performed. Grayscale, spectral waveform, and color flow Doppler evaluation of the adnexa. COMPARISON: None. FINDINGS: UTERUS: Anteverted. The uterus measures 8.9 x 6.2 x 5.3 cm. There is no uterine mass. The endometrial stripe measures 19 mm in AP diameter which is within normal limits. RIGHT OVARY: Measures 2.6 x 2.3 x 1.7 cm. Non-enlarged, normal echogenicity. There is normal arterial inflow and venous outflow present in the right ovary. LEFT OVARY: Measures 3.1 x 2.4 x 1.5 cm. Non-enlarged, normal echogenicity. There is normal arterial inflow and venous outflow present in the left ovary. FREE FLUID: None. US/Transvaginal Non- IMPRESSION: Normal pelvic ultrasound. Electronically Signed: Craig Weaver MD at 17:29 EDT Tel , Service support ,
== END ==
PROVIDERS: PCP Family Medicine; Visit Provider Obstetrics & Gynecology
DX: N93.9 Abnormal uterine and vaginal bleeding, unspecified (principal)
CPT/HCPCS: 76830; 76856

== ENCOUNTER → 2021-04-17 13:21 | Outpatient (CLI) | payer BC, SELFPAY ==
--- NOTE | 2021-04-17 08:15 | EMB_PTH ---
PATIENT: YASSINE AZUL LOC: [facility] U#:[id number] AGE/SX: 44/F ROOM: RE04/17/[address]: Dr. Berenice Austin MD : 1980 BED: DIS: SPEC #: [id number] RECD: 04/17/21 13:05 STATUS: JESUS OMERO #: [id number] BENITO: 04/17/21 08:[address]: Berenice Austin DEPT: SURGICAL PATHOLOGY RECD BY: Mar Gay ENTERED: 04/17/21 13:40 SP TYPE: ENDOM BX/C JOSE ANTONIO DR: Dr. Craig Nava MD Tissues: Endometrium, NOS Procedures: Surgery Specimen Level IV HEADER OPERATION: Endometrial biopsy PRE-OP DIAGNOSIS: Abnormal uterine bleeding TISSUE SUBMITTED: Endometrial biopsy MICROSCOPIC DIAGNOSIS Endometrial biopsy: Secretory endometrium with extensive glandular and stromal breakdown. SJ:alice 04/18/2021 MICROSCOPIC DESCRIPTION Slides are reviewed. GROSS DESCRIPTION Received is one container labeled with the patient's name and not further designated. The specimen consists of multiple irregular fragments of red-de la vega soft tissue that in aggregate measure 3 x 2 x 0.2 cm. The specimen is totally submitted in one cassette. / AM:alice 04/17/21 TC:5 CPT: 17224
== END ==
PROVIDERS: PCP Family Medicine; Referring Provider Obstetrics & Gynecology; Visit Provider Obstetrics & Gynecology
DX: N93.9 Abnormal uterine and vaginal bleeding, unspecified (principal)
CPT/HCPCS: 88305

== ENCOUNTER 2021-04-25 05:30 | Day surgery (SDC) | payer BC, SELFPAY ==
[2021-04-25] VITALS (12 sets, daily range): BP systolic 93–135; BP diastolic 59–89; PULSE 65–108; RESP 16; TEMP 36–36.9; O2SAT 97–100; BMI 35.4
[2021-04-25 05:59] LABS: Internal QC Validated? YES +Cl - CLEAR BKGD; Pregnancy, Urine Negative Negative
[2021-04-25 06:25] LABS: Hematocrit 36.5 % (37-47); Hemoglobin 12.3 g/dL (12.0-15.0); Mean Corp Hgb Conc 33.7 g/dL (32-36); Mean Corpuscular Hgb 30.9 pg (27.0-32.0); Mean Corpuscular Volume 91.7 fL (81-99); Mean Platelet Vol. 8.9 fl (6.2-12.0); Platelet Count 290 K/mm3 (150-450); RBC Distribution Width CV 11.9 % (11.6-14.6); RBC Distribution Width SD 40.3 fl (35.1-43.9); Red Blood Count 3.98 M/mm3 (4.2-5.4); White Blood Count 6.4 K/mm3 (4.4-11.0)
[2021-04-25] MEDS: Insulin Lispro 100 UNIT/ML INSULN.PEN SC (06:25)
[2021-04-25] MEDS: Acetaminophen 500 MG Tablet 1000 MG PO ×2 (06:26→12:20)
[2021-04-25] MEDS: dexAMETHasone 10 MG/ML Vial 8 MG IV (06:26)
[2021-04-25] MEDS: Phenazopyridine 95 MG Tablet 190 MG PO (06:27)
[2021-04-25] MEDS: Gabapentin 600 MG Tablet PO (06:27)
[2021-04-25] MEDS: Celecoxib 200 MG Capsule 400 MG PO (06:27)
[2021-04-25] MEDS: Lactated Ringers 1,000 ML 40 ML IV (06:27)
[2021-04-25] MEDS: Enoxaparin 40 MG/0.4 ML Syringe SC (06:28)
[2021-04-25] MEDS: Scopolamine 1mg/72hr Patch 1 PATCH TD (06:28)
[2021-04-25 06:45] LABS: Bedside Glucose 210 mg/dL (70-110)
--- NOTE | 2021-04-25 07:30 | HYST_PTH ---
PATIENT: YASSINE AZUL [place] [facility] [place][id number] AGE/SX: 40/F ROOM: RE04/25/[address]: Dr. Berenice Austin MD : 1980 BED: DIS: 04/25/2021 SPEC #: [id number] RECD: 04/25/21 09:50 STATUS: JESUS CRANEDeb #: [id number] BENITO: 04/25/21 07:[address]: Berenice Austin DEPT: SURGICAL PATHOLOGY RECD BY: Mar Gay ENTERED: 04/25/21 11:58 SP TYPE: HYSTERECT OTHR DR: Dr. Craig Nava MD Tissues: Uterus, NOS Procedures: Surgery Specimen Level V HEADER OPERATION: ERAS, vaginal hysterectomy, salpingectomy PRE-OP DIAGNOSIS: Abnormal uterine bleeding TISSUE SUBMITTED: Uterus and cervix MICROSCOPIC DIAGNOSIS Uterus, hysterectomy: Cervix ? nabothian cysts and mild chronic inflammation. Endometrium ? proliferative endometrium with focal glandular breakdown. Myometrium ? focal superficial adenomyosis. AM:alice 04/28/2021 MICROSCOPIC DESCRIPTION Slides are reviewed. GROSS DESCRIPTION Received in fixative is one container labeled with the patient's name and designated uterus, cervix. The specimen consists of a hysterectomy specimen consisting of uterus with cervix weighing 127 gm and measuring 11 x 6 x 5 cm. The serosal surface is de la vega, glistening. The ectocervical mucosa is unremarkable. The external os is oval and patulous in contour. The endocervical canal measures 3 cm in length and the endocervical mucosa is de la vega, glistening without any mass lesion. The triangular endometrial cavity measures 4.5 cm in length and 3 cm in width. The endometrium is de la vega, glistening without any mass lesion and measures 0.3 cm in thickness. Sections of the uterine wall do not reveal any mass lesion and it measures up to 2.5 cm in thickness. [employer] sections are submitted in six cassettes as follows: 1 - anterior cervix, 2 - posterior cervix, 3 & 4 - anterior uterine wall, 5 & 6 - posterior uterine wall. / NATE:alice 04/25/21 TC: 5 CPT: 80421
[2021-04-25] MEDS: Cefazolin 2 GM in 0.9% Normal Saline 100 ML IV (07:35)
--- NOTE | 2021-04-25 07:38 | PCM.HP.BLA ---
History and Physical Date of Admission: 04/25/21 Intake Vital Signs 04/17/21 08:05 Height 5 ft 1.5 in Weight: 183 lb 6 oz BMI 34.0 BP 128/86 H Intake Visit Reasons: EMB Allergies peanut Allergy (Mild, Verified 04/17/21 08:06) Anaphylaxis treenut Allergy (Mild, Uncoded 04/17/21 08:06) Anaphylaxis Medications albuterol sulfate 2 puff INHALATION Q2H PRN 09/15/13 [History Confirmed 04/17/21] epinephrine 0.3 mg/0.3 mL injection, auto-injector 0.3 mg IM ONCE 06/23/18 [History Confirmed 04/17/21] cholecalciferol (vitamin D3) 50 mcg (2,000 unit) capsule 2,000 unit PO DAILY 03/21/19 [History Confirmed 04/17/21] fluticasone 100 mcg-salmeterol 50 mcg/dose blistr powdr for inhalation 1 puff INHALATION BID 03/21/19 [History Confirmed 04/17/21] mecobalamin (vitamin B12) 1,000 mcg disintegrating tablet,sublingual 1,000 mcg SUBLINGUAL DAILY 03/21/19 [History Confirmed 04/17/21] tranexamic acid 650 mg tablet 1,300 mg PO TID #60 tab 02/03/21 [Rx Confirmed 04/17/21] Is last menstrual period known: Yes Last Menstral Period: 04/17/21 [facility] Medical History (Updated 04/17/21 @ 08:[address] Berenice Austin MD) Abnormal uterine bleeding (AUB) Asthma Depression Shortness of breath Vitamin D deficiency Surgical History History of tonsillectomy History of tubal ligation Family History Father Colon cancer Diabetes Hypertension History of liver cancer Social History current occupational status: employed current occupation: [employer] Smoking Status: Never smoker alcohol intake: current details: occasionally substance use type: does not use caffeine: Yes what type of physical activity do you participate in: yoga frequency: 1-2 times per week seatbelt use: always do you feel safe at home: Yes additional social history: - [employer]- [employer] Patient is RN at [employer] Pregancy History 3 Elective abortions Hx Para 3 Spontaneous abortions Hx # Term Pregnancies Ectopic pregnancies Hx # Pregnancies Multiple births # of living children Past Pregnancies Del. Date Name GA/Weeks Outcome Route Bth Weight Gen Labor Lgth Anesthesia Del Locatn Provider FOB Unknown Js-2000 Unknown Lilia-2004 Unknown Darren- 2007 HPI EMB Details: YASSINE AZUL is a 40 year old who presents for fu of AUB and EMB. she is having a hysterectomy for AUB. Female Reproductive History Last Menstral Period: 04/17/21 ROS Const Constitutional: Denies fatigue, fever(s), headache(s), increased appetite, poor appetite, weight gain or weight loss GI GI: Reports as per HPI; Denies abdominal pain, constipation, nausea or vomiting : Reports as per HPI; Denies difficulty voiding, dysuria, hematuria, nipple discharge, pelvic pain, urinary frequency, urinary incontinence, urinary hesitancy, urinary urgency, vaginal discharge, vaginal dryness, vaginal odor, vaginal pruritus or other Skin Skin/Breast: Denies nipple discharge Exam Const General: cooperative, healthy appearing, comfortable, no acute distress and well developed Nutritional Appearance: average body habitus Orientation: alert HENMT Head: normal to inspection and normocephalic Ears: hearing grossly normal bilaterally and external ears normal Nose: external nose normal and nares normal Face and sinus: normal facial exam Neck Neck: normal visual inspection, no lymphadenopathy and trachea midline Thyroid: thyroid normal Resp Effort & Inspection: normal respiratory effort General: bladder normal to palpation External Female Exam: normal external appearance and normal appearance of the urethra Urethra: normal appearance of the urethra and normal palpation Speculum Exam - Vagina: normal appearance of the vagina and vaginal bleeding Speculum Exam - Cervix: normal appearance of the cervix and nontender Bimanual Exam- Vagina & Uterus: normal bimanual exam, uterine size normal, bladder normal to palpation, uterine shape normal, No tender, uterine mobility normal, consistency normal, normal palpation and non-tender Bimanual Exam- Adnexa, other: normal adnexae, adnexae mobile, no masses and normal Pelvic Support: normal OB/External & Speculum: vaginal bleeding Speculum Exam: vaginal bleeding Musc Other: gross motor intact no deficits, full bilateral strength Skin General: no rashes or lesions noted Neuro Motor: muscle tone normal throughout Office Procedures Endometrial Biopsy Endometrial Biopsy Test: Yes declined Consent Signed: Yes Time out checklist: patient, procedure, site marked/identified, positioning of patient, supplies available, allergies confirmed and team agrees on procedure Time out time: 08:32 tenaculum used: No dilator used: No Details: Cervix prepped with betadine and pipelle inserted into uterus without complication. Specimen obtained and sent to lab for analysis. All instruments removed from vagina without complications. Excellent hemostasis noted. Results POC Urine Office , Urine Negative Last Edit by Zofia Thorpe on 04/17/21 08:15 Coding Level of Care Code No Charge Diagnoses Abnormal uterine bleeding (AUB) N93.9 CPT Codes Endometrial Biopsy (09683) Assessment and Plan Assessment and Plan (1) Abnormal uterine bleeding (AUB): Status: Acute Comment: failed OCP and IUD. lysteda too expensive. emb done. plan TVHBS. plan SDS. Plan - Dr. Berenice Austin MD: After discussing the patient's diagnosis and treatment plan options, patient wishes to proceed with surgical management. I have discussed with the patient the risks, benefits, and alternatives of the procedure which include but are not limited to risks of anesthesia, bleeding, infection, possible damage to bowel, bladder, or surrounding vasculature which could lead to additional surgery to evaluate any complications. Patient agrees to procedure and wishes to proceed. ACOG/uptodate references given for additional information regarding procedure. Plan Details Other Orders: Orders: Endometrial Biopsy Today POC Urine Today N92.6
--- NOTE | 2021-04-25 07:39 | PCM.OPRPT ---
Problems Associated Problem List Diagnoses (1) Abnormal uterine bleeding (AUB): (2) S/P vaginal hysterectomy: Report of Operation Date of Procedure: 04/25/21 Pre-Operative Diagnosis: see problem list Post-Operative Diagnosis: same Surgery/Procedure Performed:: [facility] clinical nursing professor: Mariia Valverde Type of Anesthesia: General Specimen's removed: uterus, tubes Drains: aguirre Estimated Blood Loss (mL): 100 Fluids Replaced: crystalloid Description of Procedure: Patient was taken to the operating room and was placed under general anesthesia was prepped and draped in normal sterile fashion in the dorsal lithotomy position. Preoperative antibiotics and SCDs and Aguirre catheter was placed inside the bladder. Weighted speculum was placed in the vagina and the anterior and posterior lip of the cervix was grasped with 2 Darinel clamps and circumferentially injected with dilute vasopressin. A circumferential incision was made with a scalpel and the posterior cul-de-sac was entered into sharply and a longneck speculum was placed. The anterior cul-de-sac was also dissected down and entered into sharply and the uterosacral ligaments were clamped cut and suture ligated bilaterally followed by the cardinal ligaments which were Clamped cut and suture ligated bilaterally with 0 Monocryl. The uterus serially descended and progressive bites were taken bilaterally up to the level of the utero-ovarian ligament bilaterally which was clamped transected and double ligated with 0 Monocryl suture and 0 Vicryl free tie. Minimal fallopian tube was present and difficult to reach surgically and noted be within normal limits so they remained in situ and were not removed. The vagina was closed with [id number] 0 Vicryl pop offs including the posterior and anterior peritoneum in the reapproximation. Excellent hemostasis was noted. All instruments removed from the vagina clear urine was noted at the end of the procedure and patient was awoken and taken recovery in stable condition. Grafts/Implants Used: none Complications none Admit VTE Documentation VTE Present on Admission: No VTE Mechan Device Prophylaxis: SCD's VTE Pharm Prophylaxis ordered?: Yes Multi Select Codes Urinary/Genital Urinary/Genital CPT Codes: 58170 TVH <250 gr uterus
--- NOTE | 2021-04-25 07:41 | EX.PCM.DISCH ---
Discharge Instructions Procedure Hysterectomy, Vaginal Diet Discharge Diet: No restrictions Activity Discharge Activity: Return to Normal Activity, May Not Drive (while taking narcotic pain medications.) and May Shower May resume sexual activity in: 6-8 weeks Dressing / Incision Call your doctor if your incision/area has: Continuous Slow Oozing, Sudden Increased Bleeding, Increased Pain/ Swelling, Increased Redness and Foul Smelling Discharge Call your doctor if you observe: Fever of 101 or Higher, Inability to urinate, Inability to have a bowel movement and Using more than 1 pad per hour Follow Up Care Please Follow Up With: Berenice Austin MD Test Results: Test results from this visit will be discussed in further detail at your follow-up appointment, if applicable. Discharge Plan Admission Primary Reason for Your Visit: hysterectomy Attending Provider: Berenice Austin Primary Care Provider: Roe Nava Discharge Orders/Prescriptions Prescriptions: New naproxen 250 MG tablet 250 - 500 mg PO Q8H PRN PRN (Reason: MILD PAIN) Qty: 30 RF: 1 oxycodone-acetaminophen [Percocet] 5-325 mg tablet 1 tab PO Q6H PRN (Reason: pain) 7 Days Qty: 20 RF: 0 Continued fluticasone propion-salmeterol [Advair Diskus] 100-50 mcg/dose blister with device 1 puff INHALATION BID RF: 0 albuterol sulfate 1 PUFF inhaler 2 puff inhalation Q2H PRN (Reason: Shortness Of Breath) RF: 0 Referrals / Follow Up: Roe Nava MD [Primary Care Provider] - Disposition Disposition (needs filled in before D/C Order can be placed): Home, Self Care
[2021-04-25] MEDS: Vasopressin 20 UNITS/ML Vial (07:52)
[2021-04-25] MEDS: Lubricating Jelly 60 GM Tube 30 GM TOPICAL (07:52)
[2021-04-25 09:31] LABS: Bedside Glucose 112 mg/dL (70-110)
[2021-04-25] MEDS: Nalbuphine 10 MG/ML Ampul 5 MG IV (10:00)
[2021-04-25] MEDS: Ketorolac 30 MG/ML Syringe IV (11:10)
[2021-04-25] MEDS: Ondansetron 4 MG/2 ML Vial IV (11:32)
[2021-04-25] MEDS: oxyCODONE 5 MG Tablet PO (12:21)
[2021-04-25 12:56] LABS: Absolute Lymphocyte Count 0.46 X10^3/uL (0.83-4.51); Absolute Neutrophil Count 11.2 X10^3/uL (2.0-7.7); Basophil# 0.02 X10^3/uL; Basophil% 0.2 % (0-1); Hemoglobin 12.3 g/dL (12.0-15.0); Lymphocyte # 0.46 X10^3/ul (0.83-4.51); Lymphocyte % 3.9 % (19-41); Mean Corp Hgb Conc 33.2 g/dL (32-36); Mean Corpuscular Hgb 30.3 pg (27.0-32.0); Mean Corpuscular Volume 91.1 fL (81-99); Mean Platelet Vol. 8.8 fl (6.2-12.0); Monocyte# 0.06 X10^3/uL; Monocyte% 0.5 % (0-10); NRBC Flagged by Analyzer 0 % (0-5); Neutrophil # 11.18 X10^3/uL (2.7-7.7); Neutrophil % 94.9 % (47-70); POSITIVE DIFFERENTIAL YES; Platelet Count 309 K/mm3 (150-450); RBC Distribution Width SD 40.4 fl (35.1-43.9); Red Blood Count 4.06 M/mm3 (4.2-5.4); White Blood Count 11.8 K/mm3 (4.4-11.0)
[2021-04-25 13:00] LABS: Differential Indicated SCAN CRITERIA MET
[2021-04-25 13:16] LABS: Differential Comment D
== END 2021-04-25 15:18 | disposition home or self-care (01) ==
LOC: SDC 05:32 → AC 05:32
PROVIDERS: Anesthesiology; PCP Family Medicine; Referring Provider Obstetrics & Gynecology; Visit Provider Obstetrics & Gynecology
PROC: (CPT 58260; principal; 2021-04-25 07:10)
DX: N93.9 Abnormal uterine and vaginal bleeding, unspecified (principal); N88.8 Other specified noninflammatory disorders of cervix uteri; N80.0 Endometriosis of uterus; Z87.891 Personal history of nicotine dependence
CPT/HCPCS: 58260; 81025; 82962; 83735; 85025; 85027; 86850; 86900; 86901; 88307; J7120; J2405

== ENCOUNTER → 2021-06-05 16:35 | Outpatient (CLI) | payer SELFPAY | PROVIDERS: PCP Family Medicine; Visit Provider Obstetrics & Gynecology | DX: R30.0 Dysuria (principal) | CPT/HCPCS: 87086 ==